=== PATIENT | female | born 1975 | race Caucasian/White ===

== ENCOUNTER 2024-12-18 07:18 | Emergency (ER) | payer OTHER ==
[~2024-12-18] VITALS: Ht 160 cm; Wt 54.4 kg
[~2024-12-18 07:18] MED LIST: Verotin-Gr Cap1 EACH PO
[2024-12-18 07:26] VITALS: BP 113/75
[2024-12-18 07:40] LABS: Source, Urine Clean Catch
[2024-12-18 07:44] LABS: Bilirubin, Urine Neg (Neg); Color, Urine Yellow (P-Yellow); Glucose Qualitative, Urine Neg (Neg); Ketones, Urine 4+ (Neg); Leukocyte Esterase, Urine 3+ (Neg); Protein, Urine 3+ (Neg); Specific Gravity, Urine 1.020 (1.003-1.022); Urobilinogen, Urine NORM (Normal)
[2024-12-18 07:55] LABS: Red Blood Cells, Urine TNTC /hpf (0-2); White Blood Cells, Urine TNTC /hpf (0-5)
[2024-12-18] MEDS ORDERED: Nitrofurantoin/Nitrofuran Mac 100 MG Cap PO ONE (08:05)
[2024-12-18] MEDS ORDERED: NITR100CA PO (08:10)
[2024-12-18] MEDS ORDERED: PHENA200 PO (08:28)
== END 2024-12-18 08:30 | disposition home or self-care (01) ==
LOC: ER 07:18
PROVIDERS: Student in an Organized Health Care Education/Training Program
DX: N39.0 Urinary tract infection, site not specified (principal); Z87.891 Personal history of nicotine dependence
CPT/HCPCS: 81001; 87077; 87086; 87186; 99283; A9270